=== PATIENT | male | born 1985 | race African-American/Black ===

== ENCOUNTER 2019-02-14 10:33 | Emergency (ER) | payer MEDICAID, OTHER ==
[~2019-02-14] VITALS: Ht 180.3 cm; Wt 104.3 kg
[2019-02-14 15:12] LABS: Urine Amorphous Crystal FEW /hpf (None Seen); Urine Bacteria NONE SEEN /hpf (None Seen); Urine Blood Negative /uL (Negative); Urine Mucus FEW (None Seen); Urine Specific Gravity 1.038 (1.001-1.035); Urine WBC 3 /hpf (0 - 3)
[2019-02-14 16:04] VITALS: BP 121/82
== END 2019-02-14 17:29 | disposition home or self-care (01) ==
LOC: ER 10:37
DX: N50.82 Scrotal pain (principal); N43.3 Hydrocele, unspecified
CPT/HCPCS: 76870; 81001

== ENCOUNTER 2019-06-12 13:24 | Inpatient (IN) | payer MEDICAID ==
[~2019-06-12] VITALS: Ht 177.8 cm; Wt 98.1 kg
[2019-06-12 16:50] LABS: Basophils # (auto) 0 uL; Basophils % (auto) 0.7 % (0.0-2.0); Eosinophils # (auto) 0.2 uL; Eosinophils % (auto) 2.5 % (0.0-7.0); Hemoglobin 15.4 g/dL (13.5-17.5); Lymphocytes # (auto) 1.6 uL; Lymphocytes % (auto) 24.8 % (10.0-50.0); Mean Corpuscular Hemoglobin 31.3 pg (28.0-32.0); Mean Corpuscular Hgb Conc. 33.6 g/dL (32.0-36.0); Mean Corpuscular Volume 93.2 fL (80.0-100.0); Monocytes # (auto) 0.4 uL; Monocytes % (auto) 5.5 % (0.0-12.0); Neutrophils # (auto) 4.4 uL; Neutrophils % (auto) 66.5 % (37.0-80.0); Nucleated Red Blood Cells % 0.1 %; Platelet Count (auto) 237 10^3/uL (140-450); Red Blood Cells 4.93 10^6/uL (4.5-5.90); Red Cell Distribution Width 13.9 % (11.8-14.3); White Blood Cell 6.6 10^3/uL (4.4-10.8)
[2019-06-12 17:03] LABS: INR 1.04 (0.9-1.15); Partial Thromboplastin Time 27.8 sec (23.64-32.05)
[2019-06-12 17:05] LABS: Calcium 9.1 mg/dL (8.5-10.1); Potassium 4.4 mmol/L (3.5-5.1)
[2019-06-12 17:08] LABS: BUN/Creatinine Ratio 17.3
[2019-06-12 17:11] LABS: Bilirubin, Total 0.8 mg/dL (0.2-1.0); Total Protein 8.6 g/dL (6.4-8.2)
[2019-06-12] MEDS ORDERED: PANTOPRAZOLE 40 MG/10 ML VIAL INJ IV ONE (17:30)
[2019-06-12] MEDS ORDERED: MORPHINE SULF INJ 2 MG/ML SYRINGE 1ML IV PRN (19:45)
[2019-06-12] MEDS ORDERED: ONDANSETRON HCL 4 MG/2 ML VIAL IV PRN (19:45)
[2019-06-12 21:55] VITALS: BP 139/91
[2019-06-12] MEDS ORDERED: HYDROCORTISONE ACET 25 MG RECTAL SUPP PR SCH (22:00)
[2019-06-12] MEDS: DOCUSATE SOD 100 MG CAP PO SCH (22:21)
[2019-06-12] MEDS ORDERED: HYDROCORTISONE ACET 25 MG RECTAL SUPP PR ONE (22:30)
[2019-06-12 23:01] VITALS: BP 139/91
[2019-06-13] MEDS ORDERED: TAM04C PO (00:22)
[2019-06-13] MEDS ORDERED: MELO1TAB73 PO (00:22)
[2019-06-13 05:38] VITALS: BP 111/79
[2019-06-13 06:27] LABS: Albumin 3.5 g/dL (3.4-5.0); BUN/Creatinine Ratio 19.1; Calcium 8.8 mg/dL (8.5-10.1); Potassium 4.7 mmol/L (3.5-5.1)
[2019-06-13 06:30] LABS: Bilirubin, Total 0.9 mg/dL (0.2-1.0); Total Protein 7.3 g/dL (6.4-8.2)
[2019-06-13 09:00] VITALS: BP 120/74
[2019-06-13] MEDS: DOCUSATE SOD 100 MG CAP PO SCH ×2 (10:00→22:00)
[2019-06-13] MEDS: HYDROCORTISONE ACET 25 MG RECTAL SUPP PR SCH ×2 (10:13→22:00)
[2019-06-13] MEDS ORDERED: GOLYTELY 4L KIT PO ONE (10:15)
[2019-06-13 13:00] VITALS: BP 136/83
[2019-06-13 16:46] VITALS: BP 123/79
[2019-06-13 22:00] VITALS: BP 129/80
[2019-06-14 06:17] VITALS: BP 108/66
[2019-06-14] MEDS ORDERED: SODIUM CHLORIDE LOCK 10 ML ONE (08:10)
[2019-06-14] MEDS ORDERED: diphenhdrAMINE HCL 50 MG/1 ML VL ONE (08:11)
[2019-06-14 09:00] VITALS: BP 108/70
[2019-06-14] MEDS ORDERED: POTA10TA79 PO (09:56)
[2019-06-14] MEDS: fentaNYL CITRATE 100 MCG/2 ML VL ONE ×2 (09:58→10:02)
[2019-06-14] MEDS: MIDAZOLAM HCL 5 MG/ML-1ML VIAL ONE ×2 (09:58→10:02)
[2019-06-14] MEDS: HYDROCORTISONE ACET 25 MG RECTAL SUPP PR SCH ×2 (10:00→22:42)
[2019-06-14] MEDS: DOCUSATE SOD 100 MG CAP PO SCH ×2 (10:00→22:00)
[2019-06-14] MEDS: D5W/SOD CHLO 0.9% 1,000 ML IV SCH (12:52)
[2019-06-14 13:00] VITALS: BP 99/60
[2019-06-14 17:16] VITALS: BP 113/71
[2019-06-14 22:00] VITALS: BP_SYST 119; BP_SYST 150; BP_DIAS 70; BP_DIAS 97
[2019-06-15] MEDS: D5W/SOD CHLO 0.9% 1,000 ML IV SCH ×3 (03:15→12:10)
[2019-06-15 04:30] VITALS: BP 106/57
[2019-06-15 06:43] LABS: Basophils # (auto) 0 uL; Basophils % (auto) 0.3 % (0.0-2.0); Eosinophils # (auto) 0.1 uL; Eosinophils % (auto) 2.2 % (0.0-7.0); Hemoglobin 13.8 g/dL (13.5-17.5); Lymphocytes # (auto) 1.2 uL; Lymphocytes % (auto) 17.6 % (10.0-50.0); Mean Corpuscular Hemoglobin 31.1 pg (28.0-32.0); Mean Corpuscular Hgb Conc. 33.6 g/dL (32.0-36.0); Mean Corpuscular Volume 92.6 fL (80.0-100.0); Monocytes # (auto) 0.3 uL; Neutrophils # (auto) 4.9 uL; Neutrophils % (auto) 74.9 % (37.0-80.0); Nucleated Red Blood Cells % 0.1 %; Platelet Count (auto) 190 10^3/uL (140-450); Red Blood Cells 4.43 10^6/uL (4.5-5.90); Red Cell Distribution Width 13.3 % (11.8-14.3); White Blood Cell 6.5 10^3/uL (4.4-10.8)
[2019-06-15 07:04] LABS: BUN/Creatinine Ratio 12.9; Calcium 8.6 mg/dL (8.5-10.1); Magnesium 2.2 mg/dL (1.6-2.6); Potassium 4.6 mmol/L (3.5-5.1)
[2019-06-15 09:00] VITALS: BP 116/65
[2019-06-15] MEDS ORDERED: ceFAZolin 1GM/50ML 50 ML IV ONE (09:10)
[2019-06-15] MEDS ORDERED: BUPIVACAINE W/ EPINEPH 0.25% INJ 50ML MDV ONE (09:13)
[2019-06-15] MEDS ORDERED: ROCURONIUM 10MG/ML 10ML VIAL IV ONE (09:41)
[2019-06-15] MEDS ORDERED: fentaNYL CITRATE 100 MCG/2 ML VL ONE (09:41)
[2019-06-15] MEDS ORDERED: MIDAZOLAM HCL 1MG/1ML-2 ML VIAL ONE (09:41)
[2019-06-15] MEDS: HYDROCORTISONE ACET 25 MG RECTAL SUPP PR SCH ×2 (10:00→22:00)
[2019-06-15] MEDS ORDERED: GELATIN 1 SPONGE SIZE 100 TOP ONE (10:08)
[2019-06-15] MEDS ORDERED: LIDOCAINE VISCOUS 2% 15ML UD ONE (10:09)
[2019-06-15] MEDS ORDERED: LIDOCAINE 2% JELLY 11ml (GLYDO) ONE (10:11)
[2019-06-15] MEDS ORDERED: MORPHINE SULFATE 4 MG/ML SYR/VIAL IV PRN (10:30)
[2019-06-15] MEDS ORDERED: ACETAMINOPHEN/CODEINE#3 (300/30mg) TAB PO PRN (10:30)
[2019-06-15] MEDS ORDERED: ONDANSETRON HCL 4 MG/2 ML VIAL IV PRN (10:45)
[2019-06-15] MEDS ORDERED: ePHEDrine SULFATE 50 MG/ML AMP IV PRN (10:45)
[2019-06-15] MEDS ORDERED: hydrALAZINE HCL 20 MG/ML VL IV PRN (10:45)
[2019-06-15] MEDS ORDERED: fentaNYL CITRATE 100 MCG/2 ML VL IV PRN (10:45)
[2019-06-15 13:00] VITALS: BP 138/86
[2019-06-15] MEDS: DOCUSATE SOD 100 MG CAP PO SCH ×2 (15:32→22:00)
[2019-06-15] MEDS: HYDROcodone-ACET 5/325MG TAB PO PRN (15:33)
[2019-06-15 16:36] VITALS: BP 119/63
[2019-06-15 22:01] VITALS: BP 129/79
[2019-06-16] MEDS: D5W/SOD CHLO 0.9% 1,000 ML IV SCH ×4 (00:54→19:15)
[2019-06-16 05:26] VITALS: BP 115/65
[2019-06-16] MEDS: HYDROcodone-ACET 5/325MG TAB PO PRN (06:56)
[2019-06-16 09:00] VITALS: BP 132/70
[2019-06-16] MEDS: HYDROCORTISONE ACET 25 MG RECTAL SUPP PR SCH ×2 (09:29→21:34)
[2019-06-16] MEDS: DOCUSATE SOD 100 MG CAP PO SCH ×2 (09:29→21:34)
[2019-06-16 13:00] VITALS: BP 125/69
[2019-06-16 17:44] VITALS: BP 146/73
[2019-06-16 22:00] VITALS: BP 106/77
[2019-06-17] MEDS: D5W/SOD CHLO 0.9% 1,000 ML IV SCH ×3 (03:15→19:15)
[2019-06-17 05:00] VITALS: BP 130/72
[2019-06-17 08:45] VITALS: BP 126/86
[2019-06-17] MEDS: HYDROcodone-ACET 5/325MG TAB PO PRN ×2 (09:02→17:15)
[2019-06-17] MEDS: HYDROCORTISONE ACET 25 MG RECTAL SUPP PR SCH ×2 (09:03→22:35)
[2019-06-17] MEDS: DOCUSATE SOD 100 MG CAP PO SCH ×2 (09:03→22:35)
[2019-06-17 12:15] VITALS: BP 116/70
[2019-06-17 16:36] VITALS: BP 133/80
[2019-06-17 22:00] VITALS: BP 137/80
[2019-06-18] MEDS: D5W/SOD CHLO 0.9% 1,000 ML IV SCH ×3 (03:15→19:15)
[2019-06-18 05:00] VITALS: BP 128/71
[2019-06-18 08:00] VITALS: BP 117/69
[2019-06-18] MEDS: DOCUSATE SOD 100 MG CAP PO SCH ×2 (09:37→23:48)
[2019-06-18] MEDS: ACETAMINOPHEN 500 MG TAB PO PRN ×2 (09:38→17:48)
[2019-06-18] MEDS: HYDROCORTISONE ACET 25 MG RECTAL SUPP PR SCH ×2 (10:00→22:00)
[2019-06-18 12:00] VITALS: BP 115/72
[2019-06-18 17:00] VITALS: BP 122/74
[2019-06-19] MEDS: D5W/SOD CHLO 0.9% 1,000 ML IV SCH ×2 (03:15→10:55)
[2019-06-19 05:00] VITALS: BP 104/55
[2019-06-19 08:00] VITALS: BP 102/66
[2019-06-19] MEDS: HYDROCORTISONE ACET 25 MG RECTAL SUPP PR SCH (10:00)
[2019-06-19] MEDS: DOCUSATE SOD 100 MG CAP PO SCH (10:05)
[2019-06-19] MEDS: ACETAMINOPHEN 500 MG TAB PO PRN (10:05)
[2019-06-19 12:00] VITALS: BP 109/73
[2019-06-19 14:50] VITALS: BP 109/73
== END 2019-06-19 15:15 | disposition home or self-care (01) | DRG 226 ==
LOC: ER 13:33 → OVERFLOW 13:34 → CENTRAL 21:59
PROVIDERS: ADMIT Nurse Practitioner Acute Care; ATTEND Internal Medicine
PROC: 06BY0ZC Excision of Hemorrhoidal Plexus, Open Approach (ICD-10-PCS; 2019-06-14)
PROC: 0DJD8ZZ Inspection of Lower Intestinal Tract, Via Natural or Artificial Opening Endoscopic (ICD-10-PCS; principal; 2019-06-14 09:55)
DX: K62.5 Hemorrhage of anus and rectum (principal); E66.01 Morbid (severe) obesity due to excess calories; K64.8 Other hemorrhoids; K64.4 Residual hemorrhoidal skin tags; Z90.49 Acquired absence of other specified parts of digestive tract; Z68.31 Body mass index [BMI] 31.0-31.9, adult
CPT/HCPCS: 36415; 45378; 74176; 80048; 80053; 83735; 85025; 85610; 85730; 86850; 86900; 86901; 96374; C9113; G0378; J0690; J2250; J2405

== ENCOUNTER 2020-04-17 13:20 | Emergency (ER) | payer MEDICAID ==
[~2020-04-17] VITALS: Ht 182.9 cm; Wt 101.6 kg
[~2020-04-17 13:20] MED LIST: MELO1TAB73 PO; TAM04C PO
[2020-04-17 15:53] VITALS: BP 110/87
== END 2020-04-17 15:55 | disposition home or self-care (01) ==
LOC: ER 13:20
DX: J20.9 Acute bronchitis, unspecified (principal); Z20.828 Contact with and (suspected) exposure to other viral communicable diseases
CPT/HCPCS: 36415; 71045; 87426

== ENCOUNTER 2020-07-24 16:12 | Emergency (ER) | payer MEDICAID ==
[~2020-07-24] VITALS: Ht 182.9 cm; Wt 102.5 kg
[2020-07-24 17:28] VITALS: BP 131/90
== END 2020-07-24 17:50 | disposition home or self-care (01) ==
LOC: ER 16:12
DX: G44.209 Tension-type headache, unspecified, not intractable (principal); F41.1 Generalized anxiety disorder
CPT/HCPCS: 70450

== ENCOUNTER 2020-09-20 16:23 | Emergency (ER) | payer MEDICAID ==
[~2020-09-20] VITALS: Ht 180.3 cm; Wt 106.1 kg
[2020-09-20 16:24] VITALS: BP 128/89
== END 2020-09-20 17:48 | disposition home or self-care (01) ==
LOC: ER 16:24
DX: N40.0 Benign prostatic hyperplasia without lower urinary tract symptoms (principal); F41.9 Anxiety disorder, unspecified; Z76.0 Encounter for issue of repeat prescription

== ENCOUNTER 2020-09-24 16:13 | Emergency (ER) | payer MEDICAID ==
[~2020-09-24] VITALS: Ht 180.3 cm; Wt 106.1 kg
[2020-09-24] MEDS ORDERED: SODIUM CHLORIDE 0.9% 500 ML IVB ONE (17:15)
[2020-09-24] MEDS ORDERED: SODIUM CHLORIDE 0.9% 1,000 ML IV ONE (17:15)
[2020-09-24 17:35] LABS: Basophils # (auto) 0 10 ^3/uL (0-0.2); Basophils % (auto) 0.3 % (0.0-2.0); Eosinophils # (auto) 0.1 10 ^3/uL (0-0.8); Eosinophils % (auto) 1.8 % (0.0-7.0); Hematocrit 42.4 % (41.0-53.0); Hemoglobin 14.3 g/dL (13.5-17.5); Lymphocytes # (auto) 1.3 10 ^3/uL (0.4-5.4); Lymphocytes % (auto) 19.5 % (10.0-50.0); Mean Corpuscular Hemoglobin 31.2 pg (28.0-32.0); Mean Corpuscular Hgb Conc. 33.8 g/dL (32.0-36.0); Mean Corpuscular Volume 92.3 fL (80.0-100.0); Monocytes # (auto) 0.3 10 ^3/uL (0-1.3); Monocytes % (auto) 4.2 % (0.0-12.0); Neutrophils % (auto) 74.2 % (37.0-80.0); Nucleated Red Blood Cells % 0.2 %; Platelet Count (auto) 211 10^3/uL (140-450); Red Cell Distribution Width 13.2 % (11.8-14.3); White Blood Cell 6.8 10^3/uL (4.4-10.8)
[2020-09-24] MEDS ORDERED: IOHEXOL 300 MG/ML 100ML BOTTLE IJ ONE ×2 (17:47→18:18)
[2020-09-24 17:52] LABS: Magnesium 2.3 mg/dL (1.6-2.6)
[2020-09-24 18:12] LABS: BUN/Creatinine Ratio 16.9; Calcium 8.6 mg/dL (8.5-10.1); Potassium 3.6 mmol/L (3.5-5.1)
[2020-09-24 18:20] LABS: Urine Bacteria FEW /hpf (None Seen); Urine Blood Negative /uL (Negative); Urine Mucus FEW (None Seen); Urine Specific Gravity 1.028 (1.001-1.035); Urine WBC 1 /hpf (0 - 3)
[2020-09-24 22:39] VITALS: BP 131/73
== END 2020-09-24 22:50 | disposition home or self-care (01) ==
LOC: ER 16:13
DX: N30.20 Other chronic cystitis without hematuria (principal); N41.9 Inflammatory disease of prostate, unspecified; N40.0 Benign prostatic hyperplasia without lower urinary tract symptoms; F41.9 Anxiety disorder, unspecified; Z90.89 Acquired absence of other organs; Z79.899 Other long term (current) drug therapy
CPT/HCPCS: 36415; 74177; 80048; 81001; 83690; 83735; 84443; 85025; 87491; 87591; 96360; 99285; J7030; Q9967

== ENCOUNTER 2021-03-07 13:53 | Emergency (ER) | payer MEDICAID ==
[~2021-03-07] VITALS: Ht 182.9 cm; Wt 111.6 kg
[2021-03-07 15:52] VITALS: BP 109/79
== END 2021-03-07 16:02 | disposition home or self-care (01) ==
LOC: ER 13:53
DX: J42 Unspecified chronic bronchitis (principal); Z90.49 Acquired absence of other specified parts of digestive tract
CPT/HCPCS: 71046

== ENCOUNTER 2023-02-18 22:44 | Emergency (ER) | payer MEDICAID ==
[~2023-02-18] VITALS: Ht 182.9 cm; Wt 93.0 kg
[~2023-02-18 22:44] MED LIST changes: -MELO1TAB73 PO; +MELO7.5T7 PO; -TAM04C PO; +TAMS-35 PO
[2023-02-18 23:02] VITALS: BP 148/91; PULSE 80; RESP 16; TEMP 99; O2SAT 100
[2023-02-19] MEDS ORDERED: TETANUS-DIPTH-ACEL PERTUSSIS 0.5ML SYR Tdap IM ONE (00:30)
[2023-02-19] MEDS ORDERED: LIDOCAINE 1% HCL (LOCAL ANESTH.) INJ 20ML MDV IJ ONE (00:30)
== END 2023-02-19 01:13 | disposition home or self-care (01) ==
LOC: ER 22:44
DX: S61.216A Laceration without foreign body of right little finger without damage to nail, initial encounter (principal); F41.9 Anxiety disorder, unspecified; X58.XXXA Exposure to other specified factors, initial encounter; Y93.89 Activity, other specified; Y92.89 Other specified places as the place of occurrence of the external cause; Y99.8 Other external cause status
CPT/HCPCS: 12001; 90471; 90715; 99283; J2001

== ENCOUNTER 2025-01-07 11:16 | Emergency (ER) | payer MEDICAID ==
[~2025-01-07] VITALS: Ht 182.9 cm; Wt 90.2 kg
[2025-01-07] MEDS ORDERED: BENZ100C97 PO (11:33)
[2025-01-07] MEDS ORDERED: GUAI600T78 PO (11:33)
[2025-01-07] MEDS ORDERED: AZIT-43 PO (11:33)
--- NOTE | 2025-01-07 11:34 | ED.PDOC ---
History of Present Illness HPI Comments 39 year old male with no past medical history presents to the emergency department with a chief complaint of flu-like symptoms onset 5 days. Patient began experiencing headache, body aches, cough, loss of taste 5 days ago, took an at home COVID test recently, tested positive. Patient's work required doctor's note, came to ED. No other symptoms or modifying factors present at this time. COVID test- positive Denies fevers chills night sweats unintentional weight loss Denies persistent chest pain, shortness of breath, leg swelling Denies history of asthma nor any breathing conditions Denies history of pneumonia Denies recent international travel Time Seen by MD: 11:25 Primary Care Provider: [facility] Reviewed Notes: Nurses Notes, Medications, Allergies Allergies: Coded Allergies: NO KNOWN ALLERGIES (Unverified , 03/12/12) Home Meds Active Scripts Guaifenesin (Mucinex) 600 Mg Tab, 1 TAB PO BID for 7 Days, #14 TAB 0 Refills Prov:NESSA UNDERWOOD NP 01/07/25 Benzonatate (Benzonatate) 100 Mg Cap, 1 CAP PO TID for 10 Days, #30 CAP 0 Refills Prov:NESSA UNDERWOOD NP 01/07/25 Azithromycin (Azithromycin) 250 Mg Tab, 250 MG PO DAILY MDD 500 for 5 Days, #6 TAB 0 Refills 2 TABLETS ORALLY ON DAY ONE, THEN 1 TABLET ORALLY DAILY FOR 4 DAYS Prov:NESSA UNDERWOOD NP 01/07/25 Reported Medications Meloxicam (Meloxicam) 7.5 Mg Tab, 1 TAB PO BID, #30 TAB 2 Refills 06/13/19 Tamsulosin Hcl (Flomax) 0.4 Mg Cap, 1 CAP PO DAILY, #30 CAP 11 Refills 06/13/19 Information Source: Patient Mode of Arrival: Ambulatory Severity: Moderate Timing: Days Duration: Since onset Prehospital treatment: None Past Medical History PAST MEDICAL HISTORY: Anxiety Surgical History: Unknown Family History Family History: Reviewed,noncontributory to illness Social History Smoker: Non-Smoker Alcohol: Denies ETOH Use Drugs: Denies Drug Use Lives In: Home All Other Systems: Reviewed and Negative (as per HPI) Physical Exam General Appearance: Normal HEENT: Normal ENT Inspection, Pharynx Normal, TMs Normal Neck: Full Range of Motion, Non-Tender, Normal, Normal Inspection Respiratory: Chest Non-Tender, Lungs Clear, No Accessory Muscle Use, No Respiratory Distress, Normal Breath Sounds Cardiovascular: No Edema, No JVD, No Murmur, No Gallop, Normal Peripheral Pulses, Regular Rate/Rhythm Breast Exam: Deferred Gastrointestinal: No Organomegaly, Non Tender, No Pulsatile Mass, Normal Bowel Sounds, Soft Genitalia: Deferred Pelvic: Deferred Rectal: Deferred Extremities: No calf tenderness, Normal capillary refill, Normal inspection, Normal range of motion, Non-tender, No pedal edema Musculoskeletal : Apperance: Normal Neurologic: Alert, aircraft mechanic structures II-XII nml as Tested, No Motor Deficits, Normal Affect, Normal Mood, No Sensory Deficits Cerebellar Function: Normal Reflexes: Normal Skin: Dry, Normal Color, Warm Lymphatic: No Adenopathy Was a procedure done? Was a procedure done?: No Differential Dx Considerations may include: covid, influenza, uri, rsv, parainfluenza X-Ray, Labs, Meds, VS Vital Signs Date Time Temp Pulse Resp B/P (MAP) Pulse Ox O2 Delivery O2 Flow Rate FiO2 01/07/25 11:44 98.1 90 16 125/86 (99) 99 98.1 X-Ray, Labs, Meds, VS Comment 39 year old male with no past medical history presents to the emergency department with a chief complaint of flu-like symptoms onset 5 days. Patient arrives alert and oriented, ABC's intact, afebrile, vital signs stable, saturating well in room air No red flags There is no evidence to suggest presence of vascular process such DVT or arterial ischemia, pulmonary emboli. No respiratory distress, no supplemental O2. Given the history and physical and workup, the patient is low risk for PE, PTX, ACS, or pulmonary edema. No e/o neuromuscular failure or upper airway obstruction. The patient is currently asymptomatic. Patient was prescribed acetaminophen for symptom management. The patient is tolerating PO without difficulty and ambulating with a steady gait. Strict RTED precautions have been given, including increased shortness of breath, CP, vomiting or abdominal pain. Patient instructed to self isolate for 10 days. The patient was discharged home in stable condition and given recommendations for PMD follow-up in 1 day. All questions have been answered. On reevaluation, patient had symptomatic improvement. Patient is stable for discharge at this time. External notes reviewed. Test results and diagnostic imaging interpreted. All diagnostic findings, discharge care, education and instructions provided Follow-up with PCP in 2 to 3 days Patient verbalized understanding and agreed to treatment plan Vital signs stable, afebrile, no acute distress noted Patient ambulatory with strong steady gait Advised to return precautions for any new or worsening symptoms, return to ER immediately for re-evaluation Patient is aware that the purpose of this visit was for an acute medical emergency requiring emergent stabilization. Chronic conditions, including malignancies have not been ruled out. Patient is instructed to follow up with PCP as directed and discharge instructions for continued care and workup. If unable to arrange follow-up, patient is to return to the emergency department for reassessment. Patient (parent or legal guardian if applicable) was given verbal and written discharge instructions and acknowledges understanding. Additional MDM Review of External, Non-ED records: External records reviewed. Discussion with independent historian (EMS, family) history obtained from the patient/parents (if applicable) at bedside Chronic conditions affecting care: anxiety Social determinants of health affecting care: None Consideration of admission (observation or admission): I considered escalation of care to admission for this patient, however given the reassuring workup, the patient is safe for outpatient management. Time of 1ST Reevaluation: 11:55 Reevaluation 1ST: Improved Patient Education/Counseling: Diagnosis, Treatment Family Education/Counseling: No Family Present SEPSIS Sepsis Screen Vital Signs Date Time Temp Pulse Resp B/P (MAP) Pulse Ox O2 Delivery O2 Flow Rate FiO2 01/07/25 11:44 98.1 90 16 125/86 (99) 99 98.1 Departure 1 Departure Time of Disposition: 11:33 Impression: Primary Impression: COVID-19 Disposition: 01 HOME / SELF CARE / HOMELESS Condition: Stable e-Prescriptions Guaifenesin (Mucinex) 600 Mg Tab 1 TAB PO BID for 7 Days, #14 TAB 0 Refills Prov: NESSA UNDERWOOD NP 01/07/25 Benzonatate (Benzonatate) 100 Mg Cap 1 CAP PO TID for 10 Days, #30 CAP 0 Refills Prov: NESSA UNDERWOOD NP 01/07/25 Azithromycin (Azithromycin) 250 Mg Tab 250 MG PO DAILY MDD 500 for 5 Days, #6 TAB 0 Refills 2 TABLETS ORALLY ON DAY ONE, THEN 1 TABLET ORALLY DAILY FOR 4 DAYS Prov: NESSA UNDERWOOD NP 01/07/25 Discharged With: Self Critical Care Note Critical Care Time?: No Stability Stability form required: No Heart Score Heart Score: Heart Score Response (Comments) Value History N/A 0 EKG N/A 0 Age N/A 0 Risk Factors N/A 0 Troponin N/A 0 Total 0 I personally scribed for NESSA UNDERWOOD NP ([email or web address]) on 01/07/25 at 11:34. Electronically submitted by Meenakshi Lozano ([email or web address]). NESSA UNDERWOOD NP Jan 07, 2025 11:34
[2025-01-07 11:44] VITALS: BP 125/86; PULSE 90; RESP 16; TEMP 98.1; O2SAT 99
== END 2025-01-07 12:17 | disposition home or self-care (01) ==
LOC: ER 11:16
DX: U07.1 COVID-19 (principal); F41.9 Anxiety disorder, unspecified

== ENCOUNTER 2025-03-21 22:29 | Emergency (ER) | payer MEDICAID ==
[~2025-03-21] VITALS: Ht 180.3 cm; Wt 54.6 kg
[~2025-03-21 22:29] MED LIST changes: +AZIT-43 PO; +BENZ100C97 PO; +GUAI600T78 PO
[2025-03-22 01:50] VITALS: BP 142/88; PULSE 70; RESP 16; TEMP 98.8; O2SAT 98
[2025-03-22] MEDS ORDERED: PRED20TA2 PO (01:56)
[2025-03-22] MEDS ORDERED: COROSUS RIGHT EAR (01:56)
--- NOTE | 2025-03-22 01:56 | ED.PDOC ---
Eye-HPI HPI Comments PT CAME TO THE ER WITH CC OF RIGHT EAR ACHE WITH LOSS OF HEARING. PT IS A&OX4 RR EVEN AND REGULAR NO DISTRESS NOTED AT THIS TIME. PT DOES STATE FOLLOW UP WITH HIS PCP ABOUT A WEEK AGO WAS TOLD HE HAD EAR WAX WAS TOLD TO USE [id number] DEBROX WHICH HE DID HE NOTES NO IMPROVEMENT IN SYMPTOMS. PT DENIES N/V/D CP SOB, FEVER, CHILLS, OR TRAUMA. Chief Complaint: Earache Time Seen by MD: 22:40 Primary Care Provider: [facility] Reviewed Notes: Nurses Notes, Medications, Allergies Allergies: Coded Allergies: NO KNOWN ALLERGIES (Unverified , 03/12/12) Home Meds Active Scripts Prednisone (Prednisone) 20 Mg Tab, 20 MG PO DAILY@BREAKFAST for 4 Days, #4 TAB Prov:VALENTINA SANEZ 03/22/25 Bnzxozkj-Eifkiksqq-Nr (Otic) (Cortisporin Otic Susp) [address], 4 DROP RIGHT EAR TID for 7 Days, #10 ML Prov:VALENTINA SAENZ 03/22/25 Guaifenesin (Mucinex) 600 Mg Tab, 1 TAB PO BID for 7 Days, #14 TAB 0 Refills Prov:NESSA UNDERWOOD NP 01/07/25 Benzonatate (Benzonatate) 100 Mg Cap, 1 CAP PO TID for 10 Days, #30 CAP 0 Ref ills Prov:NESSA UNDERWOOD NP 01/07/25 Azithromycin (Azithromycin) 250 Mg Tab, 250 MG PO DAILY MDD 500 for 5 Days, #6 TAB 0 Refills 2 TABLETS ORALLY ON DAY ONE, THEN 1 TABLET ORALLY DAILY FOR 4 DAYS Prov:NESSA UNDERWOOD NP 01/07/25 Reported Medications Meloxicam (Meloxicam) 7.5 Mg Tab, 1 TAB PO BID, #30 TAB 2 Refills 06/13/19 Tamsulosin Hcl (Flomax) 0.4 Mg Cap, 1 CAP PO DAILY, #30 CAP 11 Refills 06/13/19 Mode of Arrival: Ambulatory Past Medical History PAST MEDICAL HISTORY: Anxiety Surgical History: Unknown Family History Family History: Reviewed,noncontributory to illness Social History Smoker: Non-Smoker Alcohol: Denies ETOH Use Drugs: Denies Drug Use Lives In: Home All Other Systems: Reviewed and Negative (SEE HPI) Physical Exam General Appearance: No Apparent Distress, Normal HEENT: Normal ENT Inspection, Pharynx Normal, TMs Normal, Other (RIGHT EAR CANAL MODERATE EDEMA WITH YELLOWISH DRAINAGE NO NOTED WAX TM INTACT WITHOUT ERYTHEMA OR BULGING) Neck: Full Range of Motion, Non-Tender Respiratory: Lungs Clear, No Respiratory Distress, Normal Breath Sounds Cardiovascular: No Murmur, Normal Peripheral Pulses, Regular Rate/Rhythm Breast Exam: Deferred Gastrointestinal: Non Tender, Soft Genitalia: Deferred Pelvic: Deferred Rectal: Deferred Extremities: Normal capillary refill, Normal range of motion Musculoskeletal : Apperance: Normal Neurologic: Alert, No Motor Deficits, Normal Affect, Normal Mood, No Sensory Deficits Cerebellar Function: Normal Reflexes: NOT DONE Skin: Dry, Normal Color, Warm Lymphatic: No Adenopathy Was a procedure done? Was a procedure done?: No EENT DIFF Eye: N/A Ear: Cerumen Impaction, Foreign Body, Otitis Externa, Barotrauma, Otitis Media, Perforation X-Ray, Labs, Meds, VS Vital Signs Date Time Temp Pulse Resp B/P (MAP) Pulse Ox O2 Delivery O2 Flow Rate FiO2 03/21/25 22:33 97.8 79 20 136/90 97 97.8 X-Ray, Labs, Meds, VS Comment LIKELY OTITIS EXTERNA PATIENT GIVEN DECADRON IM 10 MG FOR THE EDEMA. SCRIPT TRIAL OF CORTISPORIN DROPS. ADVISED TO TAKE DROPS PRESCRIBED SIDE EFFECTS DISCUSSED. FOLLOW UP WITH PCP IN 2-3 DAYS NECESSARY ER RETURN PRECAUTIONS GIVEN PATIENT INDICATES UNDERSTANDING AGREES WITH DISCHARGE PLAN OF CARE. Time of 1ST Reevaluation: 22:40 Reevaluation 1ST: Unchanged Time of 2ND Reevaluation: 02:14 Reevaluation 2ND: Improved Patient Education/Counseling: Diagnosis, Treatment, Need For Follow Up Family Education/Counseling: No Family Present SEPSIS Sepsis Screen Date sepsis recognized/suspect: Mar 21, 2025 Time Sepsis recognized/suspect: 2235 Recent Procedure: No On Antibiotic Therapy: No Respiratory Rate >20: No Heart Rate >90: No Temp<36 C (96.8 F) or >38.3 C: No SBP <90 or MAP <65 mmHG: No New Acute Mental Status Change: No Is the patient on CPAP, BIPAP,: No Vital Signs Date Time Temp Pulse Resp B/P (MAP) Pulse Ox O2 Delivery O2 Flow Rate FiO2 03/21/25 22:33 97.8 79 20 136/90 97 97.8 Departure 1 Departure Time of Disposition: 02:14 Impression: Primary Impression: Otitis externa Qualified Codes: H60.501 - Unspecified acute noninfective otitis externa, right ear Disposition: HOME / SELF CARE / HOMELESS Condition: Stable e-Prescriptions Prednisone (Prednisone) 20 Mg Tab 20 MG PO DAILY@BREAKFAST for 4 Days, #4 TAB Prov: VALENTINA SAENZ 03/22/25 Pewhxcxb-Iwwzsdrmz-Nu (Otic) (Cortisporin Otic Susp) [address] 4 DROP RIGHT EAR TID for 7 Days, #10 ML Prov: VALENTINA SAENZ 03/22/25 Discharged With: Self Critical Care Note Critical Care Time?: No Stability Stability form required: VALENTINA Shanks Mar 22, 2025 01:56
== END 2025-03-22 02:46 | disposition home or self-care (01) ==
LOC: ER 22:29
DX: H60.91 Unspecified otitis externa, right ear (principal); F41.9 Anxiety disorder, unspecified; Z79.899 Other long term (current) drug therapy
CPT/HCPCS: 96372; 99283; J1100